=== PATIENT | female | born 1995 | race Caucasian/White ===

== ENCOUNTER 2020-08-28 13:01 | Emergency (ER) | payer MEDICAID ==
[~2020-08-28] VITALS: Ht 167.6 cm; Wt 81.6 kg
[2020-08-28 13:14] VITALS: BP 111/72
[2020-08-28] MEDS ORDERED: ONDANSETRON 4 MG/2 ML VIAL IVP ONE (13:35)
[2020-08-28] MEDS ORDERED: MORPHINE SULFATE 4 MG/ML SYR IVP ONE (13:35)
[2020-08-28 13:58] LABS: BILIRUBIN,URINE 1+ (NEGATIVE); BLOOD, URINE 3+ (NEGATIVE); COLOR,URINE YELLOW (YELLOW); LEUKOCYTE ESTERASE ,URINE 2+ (NEGATIVE); NITRITE, URINE POSITIVE (NEGATIVE); UGLUCOSE NEGATIVE (NEGATIVE)
[2020-08-28 13:59] LABS: BASOPHILS # (AUTO) 0.1 K/uL (0.00-0.22); BASOPHILS % (AUTO) 0.6 % (0.0-2.0); EOSINOPHILS # (AUTO) 0.1 K/uL (0-0.4); EOSINOPHILS % (AUTO) 0.7 % (0.0-4.0); HEMATOCRIT 27.9 % (36-48); HEMOGLOBIN 9.1 g/dL (12.0-16.0); LYMPHOCYTES # (AUTO) 1.1 K/uL (2.5-16.5); LYMPHOCYTES % (AUTO) 13.6 % (20.5-51.1); MEAN CORPUSCULAR HEMOGLOBIN 29 pg (27-31); MEAN CORPUSCULAR HGB CONC 33 g/dL (33-37); MEAN CORPUSCULAR VOLUME 87.4 fL (80-94); MONOCYTES # (AUTO) 0.6 K/uL (0.8-1.0); MONOCYTES % (AUTO) 6.9 % (1.7-9.3); NEUTROPHILS # (AUTO) 6.5 K/uL (1.8-7.7); NEUTROPHILS % (AUTO) 78.2 % (42.2-75.2); PLATELET COUNT (AUTO) 276 K/uL (140-450); RED BLOOD CELL COUNT(AUTO) 3.19 MIL/uL (4.20-5.40); RED CELL DISTRIBUTION WIDTH 15.6 % (11.6-13.7); WHITE BLOOD COUNT (AUTO) 8.3 K/uL (4.8-10.8)
[2020-08-28 14:11] LABS: ALBUMIN 3.4 g/dL (3.4-5.0); ANION GAP 8.6 (8-16); CARBON DIOXIDE 27.9 mmol/L (21-32); CREATININE 0.9 mg/dL (0.6-1.3); POTASSIUM 3.5 mmol/L (3.5-5.1); TOTAL BILIRUBIN 0.8 mg/dL (0.0-1.0)
[2020-08-28 14:23] LABS: APPEARANCE,URINE HAZY (CLEAR)
[2020-08-28] MEDS ORDERED: CEPH-588 PO (16:26)
[2020-08-28] MEDS ORDERED: HYDR-5191 PO ×2 (16:29→16:31)
== END 2020-08-28 17:01 | disposition home or self-care (01) ==
LOC: MED 13:01
DX: N12 Tubulo-interstitial nephritis, not specified as acute or chronic (principal); Z88.1 Allergy status to other antibiotic agents; Z79.899 Other long term (current) drug therapy
CPT/HCPCS: 36415; 74176; 80053; 81025; 85025; 87086; 96374; 96375; 99284; J2270; J2405